=== PATIENT | male | born 2000 | race Two or more races ===

== ENCOUNTER 2025-02-05 20:41 | Emergency (ER) | payer BC ==
[~2025-02-05] VITALS: Ht 165.1 cm; Wt 52.7 kg
[2025-02-05 21:21] LABS: MEAN PLATELET VOLUME 8.5 FL (7.4-10.4); RED CELL DISTRIBUTION WIDTH 13.6 % (11.5-14.5)
[2025-02-05 21:48] LABS: CREATININE 0.73 MG/DL (0.60-1.10); TOTAL CARBON DIOXIDE 28.0 MMOL/L (24-32); eCRCL 113 ML/MIN; eGFR > 90 ML/MIN
[2025-02-05 22:33] LABS: LEUKOCYTE ESTERASE ,URINE MODERATE (Neg); NITRITES, URINE NEGATIVE (Neg); OCCULT BLOOD,URINE LARGE (Neg)
[2025-02-05 22:41] LABS: UA COLLECTION TYPE CLN CATCH MIDSTREAM
[2025-02-05 22:54] LABS: MUCUS STRANDS MANY /LPF (Neg); SQUAMOUS EPITHELIAL CELL,UR MODERATE /LPF (FEW)
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
[2025-02-05 23:42] LABS: HCG SERUM QL NEGATIVE
--- NOTE | 2025-02-05 23:46 | RADIOLOGY REPORT ---
Exam: CT CT ABDOMEN PELVIS History: abd pain, fever Comparison Study: None TECHNIQUE: Multidetector CT of the abdomen and pelvis was performed from lung bases to pubic symphysi s. Imaging was performed without IV contrast. Axial, coronal, and sagittal multiplanar reformats were obtained from the axial data set by the technologist. RADIATION DOSE: CTDI vol 5.81 mGy. DLP 266.74 mGy.cm Findings: Limited evaluation of the solid organs in the absence of IV contrast. Evaluation is also limited by l ack of mesenteric fat. Lungs: The lung bases are clear. Liver: Unremarkable. Spleen: Unremarkable. Pancreas: Unremarkable. Gallbladder: Unremarkable. Adrenals: Unremarkable Kidneys: Unremarkable. Pelvic Viscera: Unremarkable. Vasculature: Unremarkable. Retroperitoneum: Unremarkable. Bowel: No bowel obstruction. Nonspecific fluid-filled small bowel. The appendix is not definitively seen. Musculoskeletal: Unremarkable. Soft tissues: Unremarkable Impression: 1. Limited evaluation as above. Nonspecific fluid-filled small bowel may reflect an enteritis in the appropriate clinical setting.
[2025-02-06] MEDS ORDERED: CEPH-585 PO
[2025-02-06 00:28] VITALS: BP 110/70; PULSE 82; RESP 18; TEMP 98.6; O2SAT 99
== END 2025-02-06 00:29 | disposition home or self-care (01) ==
LOC: ER 20:43
DX: N39.0 Urinary tract infection, site not specified (principal)
CPT/HCPCS: 36415; 74176; 80053; 81001; 83690; 84703; 85025; 87088; 99284